=== PATIENT | male | born 1980 | race Native Hawaiian/Other Pacific Islander ===

== ENCOUNTER 2018-10-24 18:58 | Emergency (ER) | payer OTHER ==
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
[2018-10-24 19:37] VITALS: BP 124/84
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
== END 2018-10-25 01:40 | disposition home or self-care (01) ==
LOC: ED 18:58
DX: S29.011A Strain of muscle and tendon of front wall of thorax, initial encounter (principal); M25.511 Pain in right shoulder; V49.49XA Driver injured in collision with other motor vehicles in traffic accident, initial encounter; Y93.89 Activity, other specified; Y92.89 Other specified places as the place of occurrence of the external cause; Y99.8 Other external cause status
CPT/HCPCS: 71046; 72100